=== PATIENT | male | born 1990 | race Two or more races ===

== ENCOUNTER 2020-07-09 11:57 | Emergency (ER) | payer OTHER ==
[~2020-07-09] VITALS: Ht 172.7 cm; Wt 72.6 kg
[2020-07-09 12:10] VITALS: BP 131/78
[2020-07-09] MEDS ORDERED: ALBU18HF2 INH (12:12)
== END 2020-07-09 12:29 | disposition home or self-care (01) ==
LOC: ER 12:02
DX: J45.909 Unspecified asthma, uncomplicated (principal); Z76.0 Encounter for issue of repeat prescription; Z88.8 Allergy status to other drugs, medicaments and biological substances; Z88.6 Allergy status to analgesic agent; Z79.899 Other long term (current) drug therapy

== ENCOUNTER 2020-07-17 19:06 | Emergency (ER) | payer OTHER ==
[~2020-07-17] VITALS: Ht 172.7 cm; Wt 77.1 kg
[~2020-07-17 19:06] MED LIST: ALBU18HF2 INH
[2020-07-17 19:10] VITALS: BP 141/77
[2020-07-17] MEDS ORDERED: ALBU18HF2 INH (19:38)
[2020-07-17] MEDS ORDERED: METH4TAB3 PO (19:38)
== END 2020-07-17 19:42 | disposition home or self-care (01) ==
LOC: ER 19:07
DX: J45.909 Unspecified asthma, uncomplicated (principal); Z76.0 Encounter for issue of repeat prescription; Z90.49 Acquired absence of other specified parts of digestive tract; Z88.8 Allergy status to other drugs, medicaments and biological substances; Z88.6 Allergy status to analgesic agent; Z79.899 Other long term (current) drug therapy

== ENCOUNTER 2023-03-14 17:19 | Emergency (ER) | payer OTHER ==
[~2023-03-14] VITALS: Ht 172.7 cm; Wt 77.1 kg
[~2023-03-14 17:19] MED LIST changes: +METH4TAB3 PO
[2023-03-14] MEDS ORDERED: BACITRACIN ZINC OINT (15 GM) 15 GM TUBE TP STA (17:57)
[2023-03-14] MEDS ORDERED: IPRATROPIUM NEB FS 0.5 MG/2.5 ML AMPUL.NEB NEB ONE (18:00)
[2023-03-14] MEDS ORDERED: ALBUTEROL FS 2.5 MG/3 ML VIAL.NEB NEB ONE (18:00)
[2023-03-14] MEDS ORDERED: predniSONE 20 MG TABLET PO ONE (18:00)
[2023-03-14] MEDS ORDERED: predniSONE 20 MG TABLET ONE (18:20)
[2023-03-14] MEDS ORDERED: ALBUTEROL FS 2.5 MG/3 ML VIAL.NEB ONE (18:22)
[2023-03-14] MEDS ORDERED: IPRATROPIUM NEB FS 0.5 MG/2.5 ML AMPUL.NEB ONE (18:22)
[2023-03-14 18:24] VITALS: O2SAT 97
[2023-03-14 18:36] VITALS: O2SAT 100
[2023-03-14 19:22] VITALS: BP 118/78; TEMP 98.4; O2SAT 97
[2023-03-14] MEDS ORDERED: NEOM28.36 TP (19:22)
[2023-03-14] MEDS ORDERED: PRED50TA PO (19:22)
== END 2023-03-14 19:24 | disposition home or self-care (01) ==
LOC: ER 17:21
DX: J45.909 Unspecified asthma, uncomplicated (principal); H00.015 Hordeolum externum left lower eyelid; Z90.49 Acquired absence of other specified parts of digestive tract; Z79.51 Long term (current) use of inhaled steroids; Z79.899 Other long term (current) drug therapy
CPT/HCPCS: 99283; 94640; J7512